=== PATIENT | male | born 1940 | race Caucasian/White ===

== ENCOUNTER 2018-08-28 13:41 | Emergency (ER) | payer OTHER, MEDICAID ==
[~2018-08-28] VITALS: Ht 182.9 cm; Wt 63.5 kg
[~2018-08-28 13:41] MED LIST: ALLO100T; CLON0.1T; HYDR10TA35 PO; LEVO25TA9; LISI-275 PO; OXYB5TAB61 PO; TEMA7.5C11 PO
[2018-08-28 15:03] LABS: Basophils # (auto) 0 uL; Basophils % (auto) 0.3 % (0.0-2.0); Eosinophils # (auto) 0 uL; Eosinophils % (auto) 0.4 % (0.0-7.0); Hematocrit 33.3 % (41.0-53.0); Hemoglobin 11.2 g/dL (13.5-17.5); Lymphocytes # (auto) 0.4 uL; Lymphocytes % (auto) 7.7 % (10.0-50.0); Mean Corpuscular Hemoglobin 29.6 pg (28.0-32.0); Mean Corpuscular Hgb Conc. 33.6 g/dL (32.0-36.0); Mean Corpuscular Volume 88.2 fL (80.0-100.0); Monocytes # (auto) 0.4 uL; Monocytes % (auto) 6.7 % (0.0-12.0); Neutrophils % (auto) 84.9 % (37.0-80.0); Platelet Count (auto) 228 10^3/uL (140-450); Red Blood Cells 3.77 10^6/uL (4.5-5.90); Red Cell Distribution Width 13.2 % (11.8-14.3); White Blood Cell 5.8 10^3/uL (4.4-10.8)
[2018-08-28 15:17] LABS: Albumin 3.3 g/dL (3.4-5.0); Calcium 9.6 mg/dL (8.5-10.1); Potassium 3.7 mmol/L (3.5-5.1)
[2018-08-28 15:19] LABS: BUN/Creatinine Ratio 25.7; Bilirubin, Total 0.5 mg/dL (0.2-1.0); Total Protein 7.3 g/dL (6.4-8.2)
[2018-08-28 20:18] LABS: Urine Bacteria FEW /hpf (None Seen); Urine Blood 1+ /uL (Negative); Urine Specific Gravity 1.014 (1.001-1.035); Urine WBC 2 /hpf (0 - 3)
[2018-08-28] MEDS ORDERED: HYDROcodone-ACET 5/325MG TAB PO ONE ×2 (22:00→22:15)
[2018-08-29 00:30] VITALS: BP 158/82
== END 2018-08-28 23:17 | disposition home or self-care (01) ==
LOC: EDBD 13:41 → ER 13:44
DX: S16.1XXA Strain of muscle, fascia and tendon at neck level, initial encounter (principal); S00.11XA Contusion of right eyelid and periocular area, initial encounter; T79.6XXA Traumatic ischemia of muscle, initial encounter; C43.59 Malignant melanoma of other part of trunk; I12.9 Hypertensive chronic kidney disease with stage 1 through stage 4 chronic kidney disease, or unspecified chronic kidney disease; N18.9 Chronic kidney disease, unspecified; K21.9 Gastro-esophageal reflux disease without esophagitis; E78.5 Hyperlipidemia, unspecified; E07.9 Disorder of thyroid, unspecified; M10.9 Gout, unspecified; Z79.899 Other long term (current) drug therapy; W18.39XA Other fall on same level, initial encounter; Y93.89 Activity, other specified; Y99.8 Other external cause status; Y92.89 Other specified places as the place of occurrence of the external cause
CPT/HCPCS: 36415; 70450; 71045; 72125; 80053; 81001; 82550; 85025

== ENCOUNTER 2020-03-31 12:39 | Inpatient (IN) | payer MEDICARE, MEDICAID ==
[~2020-03-31] VITALS: Ht 175.3 cm; Wt 59.4 kg
[~2020-03-31 12:39] MED LIST changes: +AMLO5TAB15 PO; +LEVO25TA6 PO; -LEVO25TA9
[2020-03-31] MEDS ORDERED: SODIUM CHLORIDE 0.9% 1,000 ML IVB ONE (14:04)
[2020-03-31] MEDS ORDERED: SODIUM CHLORIDE 0.9% 1,000 ML IV ONE (15:15)
[2020-03-31] MEDS ORDERED: ACETAMINOPHEN 650 MG RECT SUPP PR ONE (15:30)
[2020-03-31 16:08] LABS: Urine Bacteria MANY /hpf (None Seen); Urine Blood Negative /uL (Negative); Urine Budding Yeast MODERATE /hpf (None Seen); Urine Specific Gravity 1.016 (1.001-1.035); Urine WBC 7 /hpf (0 - 3)
[2020-03-31] MEDS ORDERED: cefTRIAXone 1GM/50ML D5W 50 ML IV ONE (16:15)
[2020-03-31] MEDS ORDERED: DOXYCYCLINE 100MG/250ML 250 ML IV ONE (16:15)
[2020-03-31 17:30] LABS: Hematocrit 31.3 % (41.0-53.0); Hemoglobin 9.7 g/dL (13.5-17.5); Mean Corpuscular Hgb Conc. 31.1 g/dL (32.0-36.0); Mean Corpuscular Volume 96.4 fL (80.0-100.0); Platelet Count (auto) 336 10^3/uL (140-450); Red Blood Cells 3.25 10^6/uL (4.5-5.90); Red Cell Distribution Width 14.2 % (11.8-14.3); White Blood Cell 10.7 10^3/uL (4.4-10.8)
[2020-03-31 17:33] LABS: INR 1.16 (0.9-1.15); Partial Thromboplastin Time 25.1 sec (23.0-31.2)
[2020-03-31] MEDS ORDERED: LACTATED RINGER'S 1,000 ML IV ONE (17:45)
[2020-03-31] MEDS ORDERED: METOPROLOL TARTRATE 1MG/1ML-5ML VIAL IV PRN (17:45)
[2020-03-31] MEDS ORDERED: NITROGLYCERIN 0.4 MG SL TAB SL PRN (17:45)
[2020-03-31] MEDS ORDERED: HYDROcodone-ACET 5/325MG TAB PO PRN (17:45)
[2020-03-31] MEDS ORDERED: MORPHINE SULF INJ 2 MG/ML SYRINGE 1ML IV PRN (17:45)
[2020-03-31] MEDS ORDERED: ASPirin 81 mg TAB PO ONE (17:45)
[2020-03-31] MEDS ORDERED: ALUM & MAG HYDROX-SIMETH LIQ(MAALOX) 30 ML PO PRN (17:45)
[2020-03-31] MEDS ORDERED: LORazepam 0.5 MG TAB PO PRN (17:45)
[2020-03-31] MEDS ORDERED: DOCUSATE SOD 100 MG CAP PO PRN (17:45)
[2020-03-31] MEDS ORDERED: METOPROLOL SUCCINATE XL 50 MG TAB PO ONE (17:45)
[2020-03-31] MEDS ORDERED: SODIUM CHLORIDE 0.9% 1,000 ML IV SCH (17:45)
[2020-03-31] MEDS ORDERED: ACETAMINOPHEN 500 MG TAB PO PRN (17:45)
[2020-03-31 17:49] LABS: Basophils % (manual) 0 (0.0-2.0); Blast Cells 0; Eosinophils % (manual) 0 (0-7); Metamyelocytes % 0; Myelocytes % 0; Promyelocytes % 0; Reactive Lymphocytes 0
[2020-03-31] MEDS ORDERED: METOCLOPRAMIDE HCL 5MG/ml INJ 2ml VIAL IV ONE (18:00)
[2020-03-31] MEDS ORDERED: METOPROLOL TARTRATE 1MG/1ML-5ML VIAL IV ONE (18:15)
[2020-03-31 18:33] LABS: Band Neutrophils % (manual) 4; Lymphocytes % (manual) 6 (10.0-50.0); Monocytes % (manual) 7 (0-12)
[2020-03-31 18:38] LABS: Anion Gap 6 (5-15); Carbon Dioxide 26 mmol/L (21-32); Chloride 123 mmol/L (98-107); Glucose 119 mg/dL (74-106); Sodium 155 mmol/L (136-145)
[2020-03-31 18:39] LABS: Alanine Aminotransferase 17 U/L (16-61); Albumin 2.2 g/dL (3.4-5.0); Alkaline Phosphatase 57 U/L (45-117); Aspartate Aminotransferase 25 U/L (15-37); BUN/Creatinine Ratio 24.6; Bilirubin, Total 0.4 mg/dL (0.2-1.0); Calcium 10.3 mg/dL (8.5-10.1); GFR African American 16 mL/min; GFR Non-African American 13 mL/min; Total Protein 7.1 g/dL (6.4-8.2)
[2020-03-31 18:40] LABS: Magnesium 3.3 mg/dL (1.6-2.6)
[2020-03-31 18:41] LABS: Potassium 5.7 mmol/L (3.5-5.1)
[2020-03-31 18:42] LABS: Blood Urea Nitrogen 111 mg/dL (7-18)
[2020-03-31] MEDS ORDERED: ALBUTEROL SULF 2.5 MG/0.5ML(0.5%) NEB SOLN NEB ONE (18:45)
[2020-03-31] MEDS ORDERED: SODIUM ZIRCONIUM CYCL 10 GM PAK PO ONE (18:45)
[2020-03-31] MEDS ORDERED: FUROSEMIDE 40 MG/4 ML VIAL IV ONE (18:45)
[2020-03-31] MEDS ORDERED: SODIUM BICARBONATE 8.4% INJ 50ML SYRINGE IV ONE (18:45)
[2020-03-31] MEDS ORDERED: CALCIUM CHL 100MG/ML 1,000 MG in D5W 5% 100 ML IV ONE (18:45)
[2020-03-31] MEDS ORDERED: DEXTROSE (50%) 50ML SYRG IV ONE (18:45)
[2020-03-31] MEDS ORDERED: InsuLIN REG 1unit/0.01ml Soln (100units/ml) IV ONE (18:45)
[2020-03-31] MEDS ORDERED: ENOXAPARIN SOD 30 MG/0.3 ML SYRINGE SC ONE (19:00)
--- NOTE | 2020-03-31 19:04 | NUR ---
AT BEDSIDE OUTSIDE DOOR IN ER 4 DUE TO R/O COVID PRECAUTIONS. SPOKE TO HERBERT OTTO REGARDING MED NEB TX PROTOCOL WITH R/O PTS, NO ONE IS TO BE GOING INTO THE PTS ROOM FOR AT LEAST AND HOUR AFTER MED NEB ADMINISTRATION. HERBERT OTTO COMMUNICATED, PT HAS BEEN TACHY SINCE ARRIVAL, MEDS GIVEN NOT TO LONG AGO FOR PTS HR. PTS HR CONTINUES AT 110-130S, RN ALSO MENTIONED HYPERKALEMIA PROTOCOL HAS NOT BEEN STARTED YET AND WILL NEED TO BE STARTED BEFORE MED NEB TX IS ADMINISTERED. NEBULIZED MEDICATION HELD AT THIS TIME. WILL CONTINUE TO MONITOR. COMMUNICATED RT LEAD CORINNA Casiano
[2020-03-31 19:08] LABS: CRP High Sensitivity 17.2 mg/dL (< 0.3)
[2020-03-31 19:12] LABS: Amphetamine Screen, Urine NEGATIVE (NEGATIVE); Barbiturate Scree,Urine NEGATIVE (NEGATIVE); Benzodiazephine Screen, Urine NEGATIVE (NEGATIVE); Cannabinoid Screen, Urine NEGATIVE (NEGATIVE); Cocaine Screen, Urine NEGATIVE (NEGATIVE); Phencyclidine Screen, Urine NEGATIVE (NEGATIVE)
[2020-03-31 19:20] LABS: Opiate Scree,Urine POSITIVE (NEGATIVE)
[2020-03-31] MEDS: SODIUM CHLORIDE 0.9% 1,000 ML IV SCH (20:16)
[2020-03-31 21:02] VITALS: BP 120/70
--- NOTE | 2020-03-31 21:02 | NUR ---
pt arrival via stretcher. pt transferred to hospital bed, attached to 2Lnc. pt is dominantly aphasic and confused (aloc). pt has valdes in place, patent, and draining to gravity.
--- NOTE | 2020-03-31 21:47 | NUR ---
MDI AND DPI HELD DUE TO PENDING COVID RESULTS. NO RESPIRATORY HISTORY NOTED PER EMAR. WILL CONTINUE TO MONITOR NEEDED.
[2020-03-31 21:54] VITALS: BP 118/72
[2020-03-31 22:00] VITALS: BP 120/70
[2020-03-31] MEDS ORDERED: ALBUTEROL SULF HFA 90MCG INH 200DOSE IN SCH (22:00)
[2020-03-31] MEDS ORDERED: BUDESONIDE (INHALATION) 180 MCG IH IN SCH (22:00)
[2020-03-31] MEDS: MORPHINE SULF INJ 2 MG/ML SYRINGE 1ML IV PRN (22:11)
--- NOTE | 2020-04-01 03:40 | NUR ---
At bedside to assess pts. Will d/c MDI medication and have nebulized txs for pt. Addendum: 04/01/20 at 0346 by Audra Valencia, RT Pt will be unable to coordinate with MDI. tx are needed upon assesment. Annalee stein.
[2020-04-01] MEDS: SODIUM ZIRCONIUM CYCL 10 GM PAK PO SCH ×2 (03:49→11:00)
[2020-04-01] MEDS ORDERED: DOXYCYCLINE 100MG/250ML 250 ML IV SCH (04:00)
[2020-04-01 05:00] VITALS: BP 95/60
[2020-04-01] MEDS: SODIUM CHLORIDE 0.9% 1,000 ML IV SCH (05:00)
--- NOTE | 2020-04-01 05:00 | NUR ---
pt. tranferred fr[facility] the [facility], report given by Annalee duval, v/s alonso, pt. confused, not in distress.
--- NOTE | 2020-04-01 05:00 | NUR ---
endorsed care to HERBERT Toure on west wing. pt transferred to 277a
[2020-04-01] MEDS: LEVOTHYROXINE SODIUM 25 MCG TAB PO SCH (06:03)
[2020-04-01] MEDS: ALBUTEROL SULF 2.5 MG/0.5ML(0.5%) NEB SOLN NEB SCH ×3 (06:10→19:04)
[2020-04-01] MEDS: IPRATROPIUM BROM 0.5 MG/2.5ML INH SOL NEB SCH ×3 (06:11→19:04)
[2020-04-01 08:55] LABS: Hemoglobin 10.3 g/dL (13.5-17.5); Mean Corpuscular Hemoglobin 29.6 pg (28.0-32.0); Mean Corpuscular Hgb Conc. 31.1 g/dL (32.0-36.0); Mean Corpuscular Volume 95.1 fL (80.0-100.0); Platelet Count (auto) 361 10^3/uL (140-450); Red Blood Cells 3.48 10^6/uL (4.5-5.90); Red Cell Distribution Width 13.7 % (11.8-14.3); White Blood Cell 13.4 10^3/uL (4.4-10.8)
[2020-04-01 09:03] LABS: Basophils % (manual) 0 (0.0-2.0); Blast Cells 0; Eosinophils % (manual) 0 (0-7); Myelocytes % 0; Promyelocytes % 0; Reactive Lymphocytes 0
[2020-04-01 09:12] LABS: Albumin 2.4 g/dL (3.4-5.0); Calcium 10.9 mg/dL (8.5-10.1); Potassium 3.4 mmol/L (3.5-5.1)
[2020-04-01 09:15] LABS: BUN/Creatinine Ratio 29.7; Bilirubin, Total 0.4 mg/dL (0.2-1.0)
[2020-04-01] MEDS: cefTRIAXone 1GM/50ML D5W 50 ML IV SCH (09:47)
[2020-04-01] MEDS ORDERED: CHOLECALCIFEROL (VITD3) 2,000 UNIT CAP PO SCH (10:00)
[2020-04-01] MEDS ORDERED: ALLOPURINOL 100 MG TAB PO SCH (10:00)
[2020-04-01] MEDS ORDERED: ZINC SULFATE 220mg CAP or TAB PO SCH (10:00)
[2020-04-01] MEDS ORDERED: ENOXAPARIN SOD 60 MG/0.6 ML SYRINGE SC SCH (10:00)
[2020-04-01] MEDS ORDERED: ASCORBIC ACID 1,000 MG TAB PO SCH (10:00)
[2020-04-01] MEDS: OXYBUTYNIN CHL 5 MG TAB PO SCH (10:00)
[2020-04-01] MEDS ORDERED: LISINOPRIL 5 MG TAB PO SCH (10:00)
[2020-04-01] MEDS ORDERED: ENOXAPARIN SOD 30 MG/0.3 ML SYRINGE SC SCH (10:00)
[2020-04-01 10:05] VITALS: BP 112/61
[2020-04-01 10:45] LABS: Band Neutrophils % (manual) 7; Lymphocytes % (manual) 6 (10.0-50.0); Metamyelocytes % 2; Monocytes % (manual) 4 (0-12)
--- NOTE | 2020-04-01 11:54 | NUR ---
Nutrition Consult Consider alternate nutrition if pt continues to refuse to eat per MD approval, family and pt wishes. Consider Glucerna 1.2 at 50 ml/hr if TF is recommended per MD approval. Est energy needs 8144-8172 kcal (25-30 kcal/kg BW 57.3kg) Est protein needs 46-57g (0.8-1g/kg BW 57.3kg r/t elevated RFTs, underwt) Will reassess prn. Addendum: 04/01/20 at [address] Amended: Links added.
--- NOTE | 2020-04-01 12:30 | NUR ---
WOUND CARE NOTE: IN TO SEE PATIENT AT THIS TIME PER WOUND CARE CONSULT REQUEST. PATIENT ADMITTED TO [facility] WITH DIAGNOSIS OF ALOC. PATIENT NOTED TO HAVE MULTIPLE PRESSURE INJURIES AT TIME OF ADMIT. WOUND PHOTOS TAKEN AT THAT TIME BE BEDSIDE NURSE FOR REFERENCE. PATIENT HAS CURRENT GRACIA SCORE OF 12. HE IS VERY THIN, WEIGHING ONLY 57 KG. HE HAS VERY PROMINENT BONY PROMINENCES. SPECIALTY AIR MATTRESS ORDERED AT THIS TIME. PATIENT TO BE PLACED, PENDING DELIVERY BY [facility]. HE HAS MULTIPLE WOUNDS NOTED, INCLUDING BLISTERED DTI TO THE SACRUM, DTI X 2 TO RIGHT BACK, DTI'S TO BILATERAL HEELS, STAGE 1 PRESSURE INJURY TO LEFT POSTERIOR CALF, RIGHT KNEE, RIGHT # 1 TOE. ALL WOUNDS PHOTOGRAPHED AT THIS TIME. APPLIED DRESSINGS TO SACRAL AND BACK WOUNDS. APPLIED BARBI FOAM BOOTS TO BILATERAL FEET/HEELS TO OFFLOAD PRESSURE. ALL OTHER WOUNDS LEFT OPEN TO AIR. NO OTHER SKIN INTEGRITY ISSUES NOTED AT THIS TIME. RECOMMEND: FREQUENT TURN SCHEDULE Q 2 HOURS, PRN CONDITION PERMITS, WITH PRESSURE REDISTRIBUTION USING PILLOWS/WEDGES, SIDE TO SIDE POSITIONING, AVOIDING SUPINE; BID/PRN APPLICATION WITH ZGUARD TO SACRAL WOUND, COVERING WITH OPTIFOAM GENTLE SACRAL DRESSING; EOD DRESSING CHANGES TO BACK DTI'S, SPECIALTY AIR MATTRESS, BARBI FOAM BOOTS TO BILATERAL FEET/HEELS, SKIN/WOUND CARE PLAN, DIETARY CONSULT, CONTINUED MONITORING BY WOUND CARE TEAM. Addendum: 04/01/20 at 2009 by Judy Mccurdy RN Amended: Links added.
[2020-04-01 13:00] VITALS: BP 109/62
--- NOTE | 2020-04-01 13:00 | NUR ---
Valdes catheter dc'd Order to change valdes catheter. Valdes dc'd with clean technique following deflation of balloon. Patient tolerated well with no complaints of pain. Continue care. Valdes catheter insertion Patient assessed and determined to be in need of valdes catheter. Order obtained from MD. Patient educated on catheter and reason for insertion. All questions answered. Valdes catheter 16 guage Chinese inserted with clean sterile technique. Patient tolerated well.
[2020-04-01] MEDS: POTASSIUM CHLORIDE 20 MEQ in D5W 5% 1,000 ML IV SCH (14:27)
--- NOTE | 2020-04-01 15:20 | NUR ---
Patient to Nuclear Med for VQ scan per bed in a stable condition.
--- NOTE | 2020-04-01 15:51 | NUR ---
Patient noted to be back in his room.
--- NOTE | 2020-04-01 16:58 | NUR ---
SWALLOW EVALUATED. PATIENT APPEARS VERY WEAK BUT ABLE TO FOLLOW ONE STEP COMMANDS. PATIENT HAS NATURAL TEETH HOWEVER, EXTREMELY WORN DOWN. PATIENT ABLE TO TOLERATE PUREE DIET TEXTURE WITH THIN LIQUIDS WITH NO OVERT SIGNS OR SYMPTOMS OF ASPIRATION. PATIENT WILL REQUIRE MAX ASSIST FOR FEEDING. NURSING NOTIFIED.
[2020-04-01 17:00] VITALS: BP 114/48
--- NOTE | 2020-04-01 19:04 | NUR ---
Respiratory note: PT RECIEVED ON RA. PT AWAKE AND ALERT AT THIS TIME. NO RESP DISTRESS NOTED. SPO2 95%, HR 62, RR 16. BS CRACKLE/DIM T/O. PT REFUSING BREATHING TX AT THIS TIME.
[2020-04-01 20:00] VITALS: BP 110/71
[2020-04-01 22:00] VITALS: BP 142/99
[2020-04-02] MEDS ORDERED: VANCOMYCIN PER PHARMACY 0 MG IV SCH (00:45)
[2020-04-02] MEDS ORDERED: VANCOMYCIN 1GM/250ML 250 ML IV ONE (01:00)
[2020-04-02] MEDS: POTASSIUM CHLORIDE 20 MEQ in D5W 5% 1,000 ML IV SCH (02:13)
[2020-04-02 05:00] VITALS: BP 137/80
[2020-04-02] MEDS: LEVOTHYROXINE SODIUM 25 MCG TAB PO SCH (06:22)
[2020-04-02] MEDS: IPRATROPIUM BROM 0.5 MG/2.5ML INH SOL NEB SCH ×3 (06:54→18:44)
[2020-04-02] MEDS: ALBUTEROL SULF 2.5 MG/0.5ML(0.5%) NEB SOLN NEB SCH ×3 (06:54→18:44)
[2020-04-02 07:02] LABS: Hematocrit 30.9 % (41.0-53.0); Hemoglobin 9.7 g/dL (13.5-17.5); Mean Corpuscular Hemoglobin 29.5 pg (28.0-32.0); Mean Corpuscular Hgb Conc. 31.3 g/dL (32.0-36.0); Mean Corpuscular Volume 94.2 fL (80.0-100.0); Platelet Count (auto) 357 10^3/uL (140-450); Red Blood Cells 3.28 10^6/uL (4.5-5.90); Red Cell Distribution Width 13.8 % (11.8-14.3); White Blood Cell 13.2 10^3/uL (4.4-10.8)
[2020-04-02 07:09] LABS: Basophils % (manual) 0 (0.0-2.0); Blast Cells 0; Monocytes % (manual) 0 (0-12); Promyelocytes % 0; Reactive Lymphocytes 0
--- NOTE | 2020-04-02 07:16 | NUR ---
PT TURNED Q 2 THROUGH THE NIGHT.O C/O PAIN.
[2020-04-02 07:20] LABS: Potassium 3.7 mmol/L (3.5-5.1)
[2020-04-02 07:27] LABS: Albumin 2.4 g/dL (3.4-5.0); BUN/Creatinine Ratio 29.7; Bilirubin, Total 0.2 mg/dL (0.2-1.0); Calcium 10.3 mg/dL (8.5-10.1); Total Protein 6.6 g/dL (6.4-8.2)
--- NOTE | 2020-04-02 07:36 | NUR ---
LAB CALLED RE BUN 114. DR. GROSSMAN AWARE OF ELEVATED BUN AND IT IS TRENDING DOWN.
[2020-04-02 08:16] LABS: Band Neutrophils % (manual) 15; Eosinophils % (manual) 3 (0-7); Lymphocytes % (manual) 4 (10.0-50.0); Metamyelocytes % 3; Myelocytes % 1
[2020-04-02 09:00] VITALS: BP 116/74
[2020-04-02] MEDS: cefTRIAXone 1GM/50ML D5W 50 ML IV SCH (09:11)
[2020-04-02] MEDS: ENOXAPARIN SOD 30 MG/0.3 ML SYRINGE SC SCH (09:11)
[2020-04-02] MEDS: OXYBUTYNIN CHL 5 MG TAB PO SCH (09:11)
[2020-04-02] MEDS: MORPHINE SULF INJ 2 MG/ML SYRINGE 1ML IV PRN ×3 (09:17→21:02)
[2020-04-02] MEDS: D5W 5% 1,000 ML IV SCH ×2 (10:52→20:57)
[2020-04-02 11:51] LABS: Protein, Urine 54.1 mg/dL (0.0-11.9)
[2020-04-02] MEDS: Ensure HIGH Protein Chocolate 8oz Bottle PO SCH ×2 (12:00→18:00)
[2020-04-02] MEDS ORDERED: TEMAZEPAM 15 MG CAP PO PRN (12:45)
[2020-04-02 13:00] VITALS: BP 122/70
--- NOTE | 2020-04-02 15:34 | NUR ---
assessment Patient is a 80 year old male who is confused. Prior to admission patient resided at a board and [facility] place in [place]. Per Lacie at [facility] [phone] fax [phone] patient will be moving [facility] [phone]. patient will resume service with hospice on discharge. Patient has no family and 2 doctors will sign for hospice and DNR. I informed Lacie I will continue to monitor and follow up as appropriate. Lacie verbalized understanding. Addendum: 04/02/20 at 1538 by Valery WADE Amended: Links added.
[2020-04-02 17:00] VITALS: BP 123/64
--- NOTE | 2020-04-02 19:10 | NUR ---
Opening Shift Note Received report from john Smyth RN. Assumed care of patient, awake and alert but confused. No S/S of distress/SOB or pain. Instructed on POC and to call for assist PRN, will continue to monitor for changes Q1hr and PRN. Bed placed in lowest position, bed alarm turned on and call light within reach.
[2020-04-02 20:00] VITALS: BP 139/61
[2020-04-02 21:53] VITALS: BP 139/61
--- NOTE | 2020-04-03 | NUR ---
Rounds Assisted patient to reposition. Dressing to sacrum is clean dry and intact. Will monitor
--- NOTE | 2020-04-03 04:00 | NUR ---
IV removal IV to right diego infiltrated. IV DC'd with sterile technique, catheter fully intact. Pressure dressing applied to site. Patient tolerated procedure well.
--- NOTE | 2020-04-03 04:20 | NUR ---
IV insertion IV access obtained, via clean sterile technique by inserting 24gauge catheter at right hand after first attempt. IV secured properly. No trauma to site. Patient tolerated procedure well.
[2020-04-03 05:29] VITALS: BP 104/64
[2020-04-03] MEDS: D5W 5% 1,000 ML IV SCH ×2 (06:00→18:00)
[2020-04-03] MEDS: LEVOTHYROXINE SODIUM 25 MCG TAB PO SCH (06:10)
[2020-04-03] MEDS: ALBUTEROL SULF 2.5 MG/0.5ML(0.5%) NEB SOLN NEB SCH ×3 (06:22→18:47)
[2020-04-03] MEDS: IPRATROPIUM BROM 0.5 MG/2.5ML INH SOL NEB SCH ×3 (06:22→18:47)
--- NOTE | 2020-04-03 07:00 | NUR ---
PATIENT REFUSED BLOOD WORK.
[2020-04-03] MEDS: OXYBUTYNIN CHL 5 MG TAB PO SCH (10:55)
[2020-04-03] MEDS: cefTRIAXone 1GM/50ML D5W 50 ML IV SCH (10:55)
[2020-04-03] MEDS: amLODIPine BESYLATE 5 MG TAB PO SCH (10:57)
[2020-04-03] MEDS: ENOXAPARIN SOD 30 MG/0.3 ML SYRINGE SC SCH (10:57)
[2020-04-03] MEDS: Ensure HIGH Protein Chocolate 8oz Bottle PO SCH ×2 (12:00→14:43)
[2020-04-03 13:00] VITALS: BP 138/70
[2020-04-03] MEDS: MORPHINE SULF INJ 2 MG/ML SYRINGE 1ML IV PRN ×2 (13:07→18:00)
[2020-04-03] MEDS: ONDANSETRON HCL 4 MG/2 ML VIAL IV PRN (13:07)
[2020-04-03 17:11] VITALS: BP 106/77
[2020-04-03 17:49] LABS: Hematocrit 30.1 % (41.0-53.0); Hemoglobin 9.3 g/dL (13.5-17.5); Red Cell Distribution Width 14.4 % (11.8-14.3)
[2020-04-03 17:51] LABS: Mean Corpuscular Hemoglobin 29.6 pg (28.0-32.0); Mean Corpuscular Hgb Conc. 30.9 g/dL (32.0-36.0); Mean Corpuscular Volume 95.7 fL (80.0-100.0); Platelet Count (auto) 351 10^3/uL (140-450); Red Blood Cells 3.15 10^6/uL (4.5-5.90); White Blood Cell 11.9 10^3/uL (4.4-10.8)
[2020-04-03 17:58] LABS: Band Neutrophils % (manual) 0; Basophils % (manual) 0 (0.0-2.0); Blast Cells 0; Myelocytes % 0; Promyelocytes % 0; Reactive Lymphocytes 0
[2020-04-03 18:14] LABS: BUN/Creatinine Ratio 28.3; Calcium 9.6 mg/dL (8.5-10.1); Potassium 3.6 mmol/L (3.5-5.1)
[2020-04-03 18:36] LABS: Eosinophils % (manual) 2 (0-7); Lymphocytes % (manual) 9 (10.0-50.0); Metamyelocytes % 2; Monocytes % (manual) 3 (0-12)
[2020-04-03 22:00] VITALS: BP 145/69
[2020-04-04 01:10] VITALS: BP 145/69
--- NOTE | 2020-04-04 01:30 | NUR ---
Pt wide awake; leaning sl to L side. This RN asked if he would like medication to help him sleep. Pt slowly answered 'yes'. When nurse re-entered room, pt stated please do not come through this area. This nurse replied, "I am your RN, your nurse to take care of you tonight." Pt had no further objections. Prev.during this shift pt mumbling, now answering in 1 - 3 word replies. Pt able to take Restoril cap with small amount water with no s/s aspiration.
[2020-04-04 05:00] VITALS: BP 135/72
[2020-04-04] MEDS: D5W 5% 1,000 ML IV SCH ×3 (05:25→16:05)
[2020-04-04] MEDS: IPRATROPIUM BROM 0.5 MG/2.5ML INH SOL NEB SCH ×3 (06:06→19:08)
[2020-04-04] MEDS: ALBUTEROL SULF 2.5 MG/0.5ML(0.5%) NEB SOLN NEB SCH ×3 (06:07→19:09)
[2020-04-04] MEDS: ONDANSETRON HCL 4 MG/2 ML VIAL IV PRN (06:54)
[2020-04-04] MEDS: MORPHINE SULF INJ 2 MG/ML SYRINGE 1ML IV PRN ×3 (07:00→18:31)
[2020-04-04] MEDS: LEVOTHYROXINE SODIUM 25 MCG TAB PO SCH (07:00)
--- NOTE | 2020-04-04 07:00 | NUR ---
MS 2mg given slow IVP after Zofran 4mg IVP for pain as pt crying out loudly when arms moved or attempt made to turn to reposition or look at wounds. Pt repeatedly tells nursing staff to leave area. Agreed to taking restoril earlier during shift as lieing in bed with eyes open maximally and staring. No SOB or increased WOB. Will endorse care to day RN.
--- NOTE | 2020-04-04 07:45 | NUR ---
Opening Shift Note Assumed care of patient, awake and alert, repeating "NO". No S/S of distress/SOB or pain. Instructed on POC and to call for assist PRN. Will continue to monitor for changes Q1hr and PRN.
[2020-04-04] MEDS: Ensure HIGH Protein Chocolate 8oz Bottle PO SCH ×3 (08:00→18:00)
[2020-04-04] MEDS: cefTRIAXone 1GM/50ML D5W 50 ML IV SCH (08:43)
[2020-04-04 09:00] VITALS: BP 137/67
--- NOTE | 2020-04-04 09:45 | NUR ---
REFUSING MEDS PATIENT REFUSING MORNING MEDS. PATIENT STATING "NO, WHY?" RE-ORIENTED PATIENT, PATIENT CONTINUES TO SAY "NO" WILL CONTINUE TO MONITOR
[2020-04-04] MEDS: OXYBUTYNIN CHL 5 MG TAB PO SCH (10:00)
[2020-04-04] MEDS: ENOXAPARIN SOD 30 MG/0.3 ML SYRINGE SC SCH (10:00)
[2020-04-04] MEDS: amLODIPine BESYLATE 5 MG TAB PO SCH (10:00)
--- NOTE | 2020-04-04 11:00 | NUR ---
POSITION CHANGE PATIENT REPOSITIONED TO RIGHT SIDE. PATIENT RESISTANT TO CARE, YELLING "STOP, GET OUT." WILL CONTINUE TO MONITOR
--- NOTE | 2020-04-04 11:35 | NUR ---
PAIN PATIENT STATED "I'M IN PAIN" PATIENT GRIMACING, AGITATED, WILL MEDICATE PER MD ORDERS. WILL CONTINUE TO MONITOR
--- NOTE | 2020-04-04 11:42 | NUR ---
RT NOTE: PT. REFUSING BREATHING TX. AT THIS TIME. NO S/S OF RESPIRATORY DISTRESS NOTED. PT. STATES, "JUST GO AWAY". RN AT BEDSIDE WELL. PT. HR 92, RR 16, POX 96% R/A.
--- NOTE | 2020-04-04 12:00 | NUR ---
LUNCH PATIENT REFUSING LUNCH.
--- NOTE | 2020-04-04 12:10 | NUR ---
PAIN REASSESSMENT PATIENT RESTING WITH EYES CLOSED, EVEN UNLABORED RESPIRATIONS. WILL CONTINUE TO MONITOR
[2020-04-04 13:00] VITALS: BP 142/74
--- NOTE | 2020-04-04 14:00 | NUR ---
POSITION CHANGE PATIENT REPOSITIONED TO LEFT SIDE. PATIENT RESISTANT TO CARE, YELLING "STOP, NO, WHY ARE YOU DOING THIS?." WILL CONTINUE TO MONITOR
--- NOTE | 2020-04-04 14:46 | NUR ---
Nutrition Followup Note Wt 57.8kg Pt was awake but unable to obtain information from pt. Pt is on a pureed diet with poor po intake aeb pt with multiple 25% po intake and 0% po intakes. Pt with Ensure HP TID, pt refused, Consider continuing to offer Ensure HP TID Est energy needs 6088-6212 kcal (25-30 kcal/kg BW 57.3kg) Est protein needs 46-57g (0.8-1g/kg BW 57.3kg r/t elevated RFTs, underwt) Will reassess prn. Labs: BUN 50H, Creat 3.18H, Alb 2.4L BM: pt with no BM noted per Rn note Skin: BS 13 mod risk, full details in careers counsellor note. PES: Partially resolved, pt with intake but still inadequate: Inadequate oral intake r/t current medical condition aeb pt with no intake per RN note Altered nutrition related labs r/t current and chronic medical conditions aeb pt with elevated RFTs, hypernatremia, hyperglycemia, hypoalb Comments 1) Continue to monitor po intake, labs, skin 2) refer pt to [facility] on DC 3) Continue current plan of care Consider Glucerna 1.2 at 50 ml/hr d/t to elevated renal labs no HD If pt stays on po intake continue ensure HP TID Expected Outcomes/Goals: 1) pt po intake >75% 2) pt labs to improve 3) pt to maintain wt while in hospital 4) f/u 3-5 days
--- NOTE | 2020-04-04 15:54 | NUR ---
WOUND CARE WOUND CARE PERFORMED PER MD ORDERS. PATIENT RESISTANT TO CARE, YELLING "WHY ARE YOU DOING THIS?" EDUCATED PATIENT ON WOUND CARE. WILL CONTINUE TO MONITOR.
--- NOTE | 2020-04-04 15:54 | NUR ---
POSITION CHANGE PATIENT REPOSITIONED TO RIGHT SIDE. PATIENT RESISTANT TO CARE, YELLING " WHY ARE YOU DOING THIS?." WILL CONTINUE TO MONITOR
[2020-04-04 16:03] LABS: Hematocrit 34.9 % (41.0-53.0); Hemoglobin 10.2 g/dL (13.5-17.5); Mean Corpuscular Hemoglobin 29.5 pg (28.0-32.0); Mean Corpuscular Hgb Conc. 29.1 g/dL (32.0-36.0); Mean Corpuscular Volume 101.2 fL (80.0-100.0); Platelet Count (auto) 413 10^3/uL (140-450); Red Blood Cells 3.45 10^6/uL (4.5-5.90); Red Cell Distribution Width 15.4 % (11.8-14.3); White Blood Cell 17.5 10^3/uL (4.4-10.8)
[2020-04-04 16:07] LABS: Basophils % (manual) 0 (0.0-2.0); Blast Cells 0; Eosinophils % (manual) 0 (0-7); Myelocytes % 0; Promyelocytes % 0; Reactive Lymphocytes 0
[2020-04-04 16:17] LABS: Albumin 2.3 g/dL (3.4-5.0); Band Neutrophils % (manual) 4; Calcium 9.6 mg/dL (8.5-10.1); Lymphocytes % (manual) 7 (10.0-50.0); Metamyelocytes % 2; Monocytes % (manual) 2 (0-12); Potassium 3.7 mmol/L (3.5-5.1)
[2020-04-04 16:22] LABS: BUN/Creatinine Ratio 25.7; Bilirubin, Total 0.3 mg/dL (0.2-1.0); Total Protein 6.9 g/dL (6.4-8.2)
--- NOTE | 2020-04-04 16:27 | NUR ---
LAB RECEIVED CRITICAL LAB; BUN 81. AWARE. WILL CONTINUE TO MONITOR
--- NOTE | 2020-04-04 16:31 | NUR ---
VITAL SIGNS PATIENT REFUSING VITAL SIGNS.
--- NOTE | 2020-04-04 18:43 | NUR ---
POSITION CHANGE PATIENT REPOSITIONED TO LEFT SIDE. PATIENT RESISTANT TO CARE, YELLING " NO, NO, NO" WILL CONTINUE TO MONITOR
--- NOTE | 2020-04-04 18:50 | NUR ---
[facility] ADDRESS: [id number] [place] [address].
--- NOTE | 2020-04-04 19:11 | NUR ---
AT BEDSIDE FOR MED VIET KEENE.
--- NOTE | 2020-04-04 21:00 | NUR ---
pt turned to left side with pillow support, oral care given, with toothette and mouthwash and toothbrush. pt cooperative.
[2020-04-04 22:00] VITALS: BP 111/77
--- NOTE | 2020-04-04 22:54 | NUR ---
pt turned to right side, cooperative at this time.
--- NOTE | 2020-04-05 05:00 | NUR ---
pt had second episode of emisis, brown, oral care given, lips moisturized, full linen change, gown change, repositioned for comfort, tolerated well.
[2020-04-05] MEDS: MORPHINE SULF INJ 2 MG/ML SYRINGE 1ML IV PRN ×3 (05:16→15:09)
[2020-04-05] MEDS: ALBUTEROL SULF 2.5 MG/0.5ML(0.5%) NEB SOLN NEB SCH ×3 (06:00→19:08)
[2020-04-05] MEDS: IPRATROPIUM BROM 0.5 MG/2.5ML INH SOL NEB SCH ×3 (06:00→19:08)
[2020-04-05] MEDS: LEVOTHYROXINE SODIUM 25 MCG TAB PO SCH (06:08)
[2020-04-05 06:18] VITALS: BP 147/72
--- NOTE | 2020-04-05 07:25 | NUR ---
Opening shift note Assumed care of patient from NOC RN Marisol. Patient is Aox1 no s/s of distress or SOB noted, responds to voice and is able to communicate verbally. Bed is in lowest locked position, call light is with reach and side rails are up x3. Updated patient on plan of care, reinforcement and reorientation is needed. Will continue to monitor q1hr and PRN.
[2020-04-05] MEDS: Ensure HIGH Protein Chocolate 8oz Bottle PO SCH ×3 (08:00→18:00)
[2020-04-05 09:00] VITALS: BP 102/57
[2020-04-05] MEDS: amLODIPine BESYLATE 5 MG TAB PO SCH (10:00)
[2020-04-05] MEDS: OXYBUTYNIN CHL 5 MG TAB PO SCH ×2 (10:00→10:54)
--- NOTE | 2020-04-05 10:40 | NUR ---
Physician rounding Dr. Bowers at nurses station. Updated MD on patient status, no new orders received.
[2020-04-05] MEDS: cefTRIAXone 1GM/50ML D5W 50 ML IV SCH (10:54)
[2020-04-05] MEDS: ENOXAPARIN SOD 30 MG/0.3 ML SYRINGE SC SCH (10:55)
[2020-04-05] MEDS: SOD CHL 0.45% 1,000 ML IV SCH ×2 (10:59→18:20)
--- NOTE | 2020-04-05 11:00 | NUR ---
IV removal IV DC'd with clean sterile technique, catheter fully intact. Pressure dressing applied to site. Patient tolerated well.
--- NOTE | 2020-04-05 11:25 | NUR ---
IV insertion IV access obtained, via clean sterile technique by inserting 22 gauge catheter at right upper arm after 3 attempts. IV secured properly. No trauma to site. Patient tolerated well.
[2020-04-05 13:00] VITALS: BP 113/80
[2020-04-05 16:50] VITALS: BP 138/84
--- NOTE | 2020-04-05 19:10 | NUR ---
end of shift note Endorsed care to noc HERBERT Mancera. No s/s of distress noted.
[2020-04-06 00:27] VITALS: BP 133/73
[2020-04-06] MEDS: SOD CHL 0.45% 1,000 ML IV SCH ×2 (05:00→15:00)
[2020-04-06 05:53] VITALS: BP 122/71
[2020-04-06] MEDS: IPRATROPIUM BROM 0.5 MG/2.5ML INH SOL NEB SCH ×2 (06:28→11:51)
[2020-04-06] MEDS: ALBUTEROL SULF 2.5 MG/0.5ML(0.5%) NEB SOLN NEB SCH ×2 (06:28→11:51)
[2020-04-06] MEDS: LEVOTHYROXINE SODIUM 25 MCG TAB PO SCH (07:03)
--- NOTE | 2020-04-06 07:20 | NUR ---
Opening shift note Assumed care of patient from NOC RN Calderon. Patient is Aox1 no s/s of distress or SOB noted, responds to voice, able to follow commands and is able to communicate verbally. Bed is in lowest locked position, call light is within reach and side rails are up x3. Updated patient on plan of care, reinforcement and reorientation is needed. Will continue to monitor q1hr and PRN.
[2020-04-06] MEDS: MORPHINE SULF INJ 2 MG/ML SYRINGE 1ML IV PRN ×2 (08:37→12:45)
--- NOTE | 2020-04-06 08:40 | NUR ---
Dressings changed Dressings were changed. No s/s of distress noted. Patient tolerated procedure well. Will continue to monitor.
[2020-04-06] MEDS: Ensure HIGH Protein Chocolate 8oz Bottle PO SCH ×3 (08:47→18:00)
[2020-04-06] MEDS: amLODIPine BESYLATE 5 MG TAB PO SCH (08:48)
[2020-04-06] MEDS: cefTRIAXone 1GM/50ML D5W 50 ML IV SCH (08:48)
[2020-04-06] MEDS: OXYBUTYNIN CHL 5 MG TAB PO SCH (08:48)
[2020-04-06] MEDS: ENOXAPARIN SOD 30 MG/0.3 ML SYRINGE SC SCH (08:48)
[2020-04-06 09:00] VITALS: BP 139/80
--- NOTE | 2020-04-06 09:50 | NUR ---
Physician rounding Dr. Clark at bedside. Updated MD on patient status. no new orders received.
[2020-04-06 10:48] LABS: Hematocrit 27.4 % (41.0-53.0); Hemoglobin 8.6 g/dL (13.5-17.5); Mean Corpuscular Hemoglobin 29.8 pg (28.0-32.0); Mean Corpuscular Hgb Conc. 31.4 g/dL (32.0-36.0); Mean Corpuscular Volume 95.1 fL (80.0-100.0); Platelet Count (auto) 382 10^3/uL (140-450); Red Blood Cells 2.88 10^6/uL (4.5-5.90); Red Cell Distribution Width 14.3 % (11.8-14.3); White Blood Cell 15.2 10^3/uL (4.4-10.8)
[2020-04-06 10:52] LABS: Basophils % (manual) 0 (0.0-2.0); Blast Cells 0; Monocytes % (manual) 0 (0-12); Myelocytes % 0; Promyelocytes % 0; Reactive Lymphocytes 0
[2020-04-06] MEDS ORDERED: AMOX500T86 PO (11:27)
--- NOTE | 2020-04-06 11:42 | NUR ---
spoke with hospice nurse Received call from Lacie hospice nurse regarding a letter from MD stating that patient is incapable of making decisions. Will notify MD regarding letter. Per Lacie she will pick the letter up this afternoon. Addendum: 04/06/20 at 1718 by CAESAR SYKES RN GERMAN PAIZ IS MIXING PLANT OPERATOR. NO RN.
--- NOTE | 2020-04-06 11:50 | NUR ---
Called Called Dr. Clark regarding letter requested from Lacie hospice plan administrator. Per she will write the letter. Awaiting letter.
[2020-04-06 11:54] VITALS: BP 139/80
[2020-04-06 12:11] LABS: Band Neutrophils % (manual) 1; Eosinophils % (manual) 1 (0-7); Lymphocytes % (manual) 6 (10.0-50.0); Metamyelocytes % 3
[2020-04-06 13:00] VITALS: BP 124/76
--- NOTE | 2020-04-06 14:21 | NUR ---
re-assessment Per consult resume hospice. MD order has been sent to [facility]. Per Lacie social and human services assistant at the hospice they are accepting patient back on service. Patient will be going to [facility] and care at [address] [place] [address]. Patient will be transported by [employer] at 530pm today post discharge. Inocencia GODINEZ has been notified. Addendum: 04/06/20 at 1425 by Valery WADE Amended: Links added.
--- NOTE | 2020-04-06 14:22 | NUR ---
received call from geriatric social work professor Received call from Valery Rick geriatric social work professor regarding transportation time. Per Valery patient will be picked up at 1730 by [employer] transportation. Per Valery if there are any questions regarding transport call delinquency prevention social worker Lacie at [phone] because they she is the one who arranged transportation.
--- NOTE | 2020-04-06 16:00 | NUR ---
patient complaint of pain patient stated having pain, and stated "I do not want anything. Leave me alone, just go I said do not bother me." educated patient about pain management and patient is still verbalized refusal.
--- NOTE | 2020-04-06 16:15 | NUR ---
Patient refusal Patient refusing to be reconnected to IV fluids. Patient stated "I said get out, you are so annoying. I do not want anything from you. Don't touch me." Educated patient on importance of receiving ordered IV fluids and patient still verbalized refusal. Will continue to monitor.
--- NOTE | 2020-04-06 16:45 | NUR ---
Patient refusing vitals DIO Varma at bedside attempting vitals. Patient stated "I already told you to leave me alone. I said no, get out." Educated patient on importance of having vitals assessed, patient still verbalizing refusal. Will continue to monitor.
--- NOTE | 2020-04-06 17:57 | NUR ---
[facility] transport transport team collected patient and all personal belongings. No s/s of distress noted at time of departure.
--- NOTE | 2020-04-06 17:58 | NUR ---
Discharge note Discharge instructions given as ordered. Encourage to follow up with hospice PMD as instructed. All questions and concerns addressed. Patient un able to verbalize understanding, reinforcement is needed. IV removed with catheter intact, pressure dressing applied. Patient sent with patent valdes catheter. Patient taken to via gurney with [employer] transport, with all personal belongings. No distress noted at time of departure.
[2020-04-07 08:06] LABS: Immunoglobulin G, Serum 1081 mg/dL (603-1613)
== END 2020-04-06 18:00 | disposition hospice, home (50) | DRG 698 ==
LOC: EDBD 12:39 → EDUNIT# 12:39 → ER 12:39 → TELE-EAST 12:40 → TELE-WESTW 04-01 05:00 → WEST WING 04-02 12:50
PROVIDERS: ADMIT Hospitalist; ATTEND Internal Medicine
DX: T83.511A Infection and inflammatory reaction due to indwelling urethral catheter, initial encounter (principal); G93.41 Metabolic encephalopathy; E43 Unspecified severe protein-calorie malnutrition; N17.0 Acute kidney failure with tubular necrosis; R53.2 Functional quadriplegia; E87.0 Hyperosmolality and hypernatremia; C90.00 Multiple myeloma not having achieved remission; N39.0 Urinary tract infection, site not specified; E87.5 Hyperkalemia; E83.52 Hypercalcemia; F03.90 Unspecified dementia, unspecified severity, without behavioral disturbance, psychotic disturbance, mood disturbance, and anxiety; B96.4 Proteus (mirabilis) (morganii) as the cause of diseases classified elsewhere; D64.9 Anemia, unspecified; E03.9 Hypothyroidism, unspecified; E78.5 Hyperlipidemia, unspecified; E86.0 Dehydration; G89.29 Other chronic pain; I12.9 Hypertensive chronic kidney disease with stage 1 through stage 4 chronic kidney disease, or unspecified chronic kidney disease; L89.151 Pressure ulcer of sacral region, stage 1; N18.3 Chronic kidney disease, stage 3 (moderate); R62.7 Adult failure to thrive; Z20.828 Contact with and (suspected) exposure to other viral communicable diseases; Z51.5 Encounter for palliative care; Z66 Do not resuscitate; Z74.01 Bed confinement status; Z85.828 Personal history of other malignant neoplasm of skin; K21.9 Gastro-esophageal reflux disease without esophagitis; Y84.6 Urinary catheterization as the cause of abnormal reaction of the patient, or of later complication, without mention of misadventure at the time of the procedure; Y92.89 Other specified places as the place of occurrence of the external cause
CPT/HCPCS: 36415; 70450; 71045; 76775; 78582; 80048; 80053; 80061; 80307; 81001; 82306; 82570; 82728; 82784; 82962; 83036; 83605; 83615; 83735; 83935; 83970; 84100; 84132; 84156; 84300; 84443; 84484; 85007; 85027; 85379; 85610; 85730; 86141; 86334; 87040; 87077; 87086; 87088; 87186; 87426; 92610; 93005; 93306; 94640; 96365; 96368; G0378; J0696; J1815; J2405; J3490; J7042; J7060